=== PATIENT | female | born 1955 | race Caucasian/White ===

== ENCOUNTER 2020-10-04 21:59 | Emergency (ER) | payer OTHER ==
[~2020-10-04] VITALS: Ht 171.4 cm; Wt 86.2 kg
--- NOTE | 2020-10-04 22:05 | NUR ---
PT BIB [facility] AFTER EPISODE OF [facility] WHILE EATING DINNER. NO PRESENCE OF HEAD TRAUMA NOTED. +APHASIA DUE TO PREVIOUS BRAIN ANEURYSM. PT IS ALERT AND ORIENTED X2. UNABLE TO RECALL WHERE OR WHY SHE IS HERE. STATES " I DONT KNOW WHY I AM HERE. WHAT AM I DOING HERE".
--- NOTE | 2020-10-04 22:06 | NUR ---
PT ARRIVED WITH 20G @ R [facility], WITH 250 FLUIDS GIVEN VIA EMS.
--- NOTE | 2020-10-04 22:12 | NUR ---
EKG BEING TAKEN
--- NOTE | 2020-10-04 22:16 | NUR ---
[employer] SUPERINTENDENT AT BEDSIDE.
--- NOTE | 2020-10-04 22:16 | NUR ---
PHLEBOTIMIST AT BEDSIDE.
[2020-10-04 22:22] LABS: BASOPHILS # (AUTO) 0.2 K/uL (0.0-0.2); BASOPHILS % (AUTO) 1.7 % (0.0-2.0); EOSINOPHILS % (AUTO) 1.8 % (0.0-6.0); HEMATOCRIT 37 % (33-45); HEMOGLOBIN 12.4 g/dL (11.5-14.8); LYMPHOCYTES # (AUTO) 2.9 K/uL (0.8-4.8); LYMPHOCYTES % (AUTO) 28.9 % (20.0-44.0); MEAN CORPUSCULAR HGB CONC 34 g/dl (31.0-36.0); MEAN CORPUSCULAR VOLUME 96 fL (82-100); MONOCYTES # (AUTO) 0.6 K/uL (0.1-1.30); MONOCYTES % (AUTO) 6.4 % (2.0-12.0); NEUTROPHILS # (AUTO) 6.1 K/uL (1.8-8.9); NEUTROPHILS % (AUTO) 61.2 % (43.0-81.0); PLATELET COUNT (AUTO) 317 K/uL (150-450); RED BLOOD CELL COUNT(AUTO) 3.84 MIL/uL (4.0-5.2); WHITE BLOOD COUNT (AUTO) 9.9 K/uL (4.3-11.0)
--- NOTE | 2020-10-04 22:30 | NUR ---
SPOKE ON THE PHONE WITH DAUGHTER. DAUGHTER STATES, "MOMS LAST SYNCOPE EPISODE WAS LAST MAY".
[2020-10-04 22:33] LABS: CALCIUM, SERUM 8.1 mg/dL (8.5-10.1); CARBON DIOXIDE 24 mmol/L (21-32); CHLORIDE 109 mmol/L (98-107); CREATININE 1.8 mg/dL (0.6-1.3); GLUCOSE 108 mg/dL (74-106); POTASSIUM 4.7 mmol/L (3.5-5.1); SODIUM SERUM 144 mmol/L (136-145); UREA NITROGEN, BLOOD 30 mg/dL (7-18)
[2020-10-04 22:39] LABS: ALANINE AMINOTRANSFERASE 27 U/L (12-78); ALBUMIN 3.2 g/dL (3.4-5.0); ALKALINE PHOSPHATASE 119 U/L (46-116); ASPARTATE AMINOTRANSFERASE 21 U/L (15-37); BILIRUBIN,DIRECT 0.1 mg/dL (0.0-0.2); BILIRUBIN,TOTAL 0.3 mg/dL (0.2-1.0); TOTAL PROTEIN, SERUM 6.6 g/dL (6.4-8.2)
--- NOTE | 2020-10-04 22:45 | NUR ---
PT COMPLAINING OF NAUSEA WITH BP LOW, DR. NORMAN NOTIFIED.
[2020-10-04] MEDS ORDERED: ONDANSETRON HCL/PF 4 MG/2 ML VIAL ONE (22:53)
[2020-10-04] MEDS ORDERED: IV NS 0.9% 1,000 ML IV ONE (23:00)
[2020-10-04] MEDS ORDERED: ONDANSETRON HCL/PF - ER 4 MG/2 ML VIAL IV ONE (23:00)
--- NOTE | 2020-10-04 23:02 | NUR ---
COVID SWAB TAKEN AND SENT TO LAB
--- NOTE | 2020-10-04 23:33 | NUR ---
GETTING TAKEN TO CT
--- NOTE | 2020-10-05 01:19 | NUR ---
TRANSFER INFO TO [address] NUMBER FOR REPORT ACCEPTING MD DR DODD
--- NOTE | 2020-10-05 01:30 | NUR ---
[facility] CALLED FOR TRANSPORT. NO [facility] AMBULANCE AVAILABLE.
--- NOTE | 2020-10-05 01:35 | NUR ---
[facility] CALLED FOR TRANSPORT. NO ALS AMBULANCE AVAILABLE.
--- NOTE | 2020-10-05 01:40 | NUR ---
[facility] CALLED FOR TRANSPORT. NO [facility] AMBULANCE AVAILABLE.
--- NOTE | 2020-10-05 01:50 | NUR ---
[facility] CALL THE CAR CALLED FOR TRANSPORT. TRIP# [phone]
--- NOTE | 2020-10-05 02:30 | NUR ---
[facility] ETA [phone]
--- NOTE | 2020-10-05 06:08 | NUR ---
notified juan antonio mcclain that pt will not be waiting for ambulance. pt signed ama to leave. advised pt benefits and effects. pt refuses to be transferred will have family member pick her up.
[2020-10-05 06:16] VITALS: BP 115/70
--- NOTE | 2020-10-05 06:16 | NUR ---
wheelchaired pt out to waiting room where she will wait for her family member.
== END 2020-10-05 06:17 | disposition left against medical advice (07) ==
LOC: ER 22:02
DX: R55 Syncope and collapse (principal); E78.5 Hyperlipidemia, unspecified; I10 Essential (primary) hypertension; N17.9 Acute kidney failure, unspecified; Z53.29 Procedure and treatment not carried out because of patient's decision for other reasons; Z20.822 Contact with and (suspected) exposure to COVID-19
CPT/HCPCS: 36415; 70450; 71045; 80048; 80076; 83880; 84484; 85025; 87426; 93005; 96361; 96374; 99291; C9803; J2405 ×2; J7030